=== PATIENT | female | born 2000 | race Caucasian/White ===

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

== ENCOUNTER 2020-03-02 17:45 | Emergency (ER) | payer OTHER, SELFPAY ==
[2020-03-02 18:00] VITALS: BP 119/56; PULSE 88; RESP 14; TEMP 36.3; O2SAT 98; BMI 45.1
--- NOTE | 2020-03-02 18:19 | DI.RAD.S_ITS ---
PROCEDURE: XR LUMBAR SPINE 2-3V INDICATIONS: fall with tailbone pain TECHNIQUE: 3 views of the lumbar spine were acquired. COMPARISON: None. FINDINGS: Bones: 5 [id number] vertebrae are present. There is trace levoconvex curvature of the lumbar spine. No vertebral body compression fractures. No suspicious bony lesions. The sacrum is obscured by overlying bowel gas. Soft tissues: Overlying bowel gas pattern is normal. No suspicious soft tissue calcifications. IMPRESSION: No acute lumbar compression fracture. Dictated by: Santy Pablo M.D. on 03/02/2020 at 20:01 Approved by: Santy Pablo M.D. on 03/02/2020 at 20:04
--- NOTE | 2020-03-02 18:48 | ED.FALL ---
HPI - Fall General Chief Complaint: Fall Stated Complaint: Fall Last Week, Pain In Lower Tailbone Time Seen by Provider: 03/02/20 18:09 Source: patient Mode of arrival: Ambulatory Limitations: no limitations History of Present Illness HPI Narrative: Patient is a 19-year-old female here for evaluation of tailbone pain. Patient states that approximately 1 week ago she fell landing on her bottom in a seated position. Since then she has had continued pain in her lower tailbone. Has been doing ibuprofen at home without any improvement. Her mother who is at bedside states there is also some redness in this area. Related Data Previous Rx's Medication Instructions Recorded methylphenidate HCl 5 mg tablet 5 mg PO QAM #60 tab MDD 82 mg 12/21/18 bupropion HCl 100 mg tablet,12 hr 100 mg PO BID #180 tab MDD 200 mg 03/29/19 sustained-release fluoxetine 40 mg capsule 40 mg PO DAILY #90 cap MDD 40 mg 03/29/19 propranolol 10 mg tablet 10 mg PO BID PRN #60 tab 03/29/19 buspirone 15 mg tablet See Rx Instructions PO BID #120 04/07/19 tab MDD 60 mg methylphenidate HCl 72 mg 72 mg PO DAILY #90 tab MDD 82mg 07/27/19 tablet,extended release 24 hr doxycycline hyclate 100 mg PO BID 7 Days #14 cap 03/02/20 Allergies Allergy/AdvReac Type Severity Reaction Status Date / Time amoxicillin Allergy Severe hives, Verified 03/02/20 20:49 fever Review of Systems Constitutional Constitutional: Denies fever(s) and Denies weakness Cardiovascular Cardiovascular: Denies chest pain and Denies dyspnea Respiratory Respiratory: Denies dyspnea Musculoskeletal Comments: Tailbone pain Integumentary/Breasts Comments: Redness around the tailbone Neurologic Neurologic: Denies weakness Psychiatric Psychiatric: Denies anxiety Hematologic/Lymphatic Hematologic/Lymphatic: Denies easy bleeding and Denies easy bruising Allergic/Immunologic Allergic/Immunologic: Denies urticaria Patient History Medical History Adult attention deficit disorder (Acute) Panic disorder [episodic paroxysmal anxiety] (Acute) Social History Smoking Status: Never smoker Smoking Status: Never smoker alcohol intake frequency: holidays/special occasions only Substance Use Type: marijuana Exam Initial Vital Signs Initial Vital Signs: Vital Signs Temperature 97.4 F L 03/02/20 18:00 Pulse Rate 88 03/02/20 18:00 Respiratory Rate 14 03/02/20 18:00 Blood Pressure 119/56 L 03/02/20 18:00 Pulse Oximetry 98 03/02/20 18:00 Const General: cooperative and comfortable Limitations: mental status not altered HENMT Head: normal to inspection and normocephalic Resp Effort & Inspection: normal respiratory effort Cardio Rate: regular rate Skin Other: Patient does have a 1 cm x 1 cm area of redness along the right aspect of the superior portion of the intergluteal cleft. Does seem to be extremely tender to palpation over this area Neuro General: patient alert and patient awake Extrem General: normal to inspection and capillary refill normal Psych Appearance: grossly normal and well kempt Course Orders Ordered: ED Orders 03/02/20 18:19 XR lumbar spine 2-3V Stat Discontinued Medications Doxycycline Hyclate (Vibramycin) 100 mg PO NOW ONE Stop: 03/02/20 20:24 Last Admin: 03/02/20 20:32 Dose: 100 mg Documented by: LARISA Vital Signs Vital signs: Vital Signs - 8 hr 03/02/20 18:00 03/02/20 20:37 Temperature 97.4 F L Pulse Rate 88 94 H Respiratory Rate 14 16 Blood Pressure 119/56 L 114/56 L Pulse Oximetry 98 100 MDM - Fall Lab Data Labs: Point of Care Testing Test Results Negative Imaging Data XR lumbar spine: Radiologist's Impression: [address] [address] XRay Report Signed Patient: Ana Laura García EMR#: [id number] : 2000:[id number] Age/Sex: 19 / FDate of Service: 03/02/20 Loc: ED Accession Number: [id number] Procedure: XR lumbar spine 2-3V Ordering Provider: Freddy Mckay D.O. PROCEDURE: XR LUMBAR SPINE 2-3V INDICATIONS: fall with tailbone pain TECHNIQUE: 3 views of the lumbar spine were acquired. COMPARISON: None. FINDINGS: Bones: 5 [id number] vertebrae are present. There is trace levoconvex curvature of the lumbar spine. No vertebral body compression fractures. No suspicious bony lesions. The sacrum is obscured by overlying bowel gas. Soft tissues: Overlying bowel gas pattern is normal. No suspicious soft tissue calcifications. IMPRESSION: No acute lumbar compression fracture. Dictated by: Santy Pablo M.D. on 03/02/2020 at 20:01 Approved by: Santy Pablo M.D. on 03/02/2020 at 20:04 [facility] Narrative Medical decision making narrative: The x-ray showed no signs of fracture. A bedside ultrasound over the area of redness on the right side of her superior buttocks/coccyx does not show any signs of a abscess or cyst however the physical exam is somewhat consistent with a very early on of a pilonidal cyst. There are no breaks in the skin. Unsure if this is secondary to the fall 1 week ago or if it is independent of this trauma. Had a discussion with the patient and her mother. Given the bedside ultrasound and the physical exam I feel that incision and drainage is not warranted today. I feel that it would unlikely produce any return of purulent material or cystic material. We gave the options to include watching and waiting for the next couple days to see if this not improve on its own or starting on antibiotics knowing that despite starting on antibiotics it may continue to worsen. After this discussion decision was made to start on antibiotics. She is given a 1st dose here in the ER and was sent home with a prescription for the remainder the course. I did inform the patient mother of for symptoms were to worsen or she would develop fevers or any other worsening symptoms she should return to the emergency department. She expressed understanding and agreement. Discharge Plan Departure Patient Disposition: Home Clinical Impression: Tailbone injury, Cellulitis Discharge Date/Time: 03/02/20 20:37 Instructions: DI for Cellulitis -- Adult Activity Restrictions/Additional Instructions: Recommend that you continue all of your medications as directed including the antibiotics that you were prescribed today. Contact your primary provider for follow-up. Return to the emergency department for any new or worsening symptoms Prescriptions: New doxycycline hyclate 100 mg capsule 100 mg PO BID 7 Days Qty: 14 RF: 0 No Action bupropion HCl [Wellbutrin SR] 100 mg tablet sustained-release 12 hr 100 mg PO BID MDD 200 mg Qty: 180 RF: 2 fluoxetine 40 mg capsule 40 mg PO DAILY MDD 40 mg Qty: 90 RF: 2 propranolol 10 mg tablet 10 mg PO BID PRN (Reason: anxiety) Qty: 60 RF: 5 methylphenidate HCl 5 mg tablet 5 mg PO QAM MDD 82 mg Qty: 60 RF: 0 buspirone 15 mg tablet See Rx Instructions PO BID MDD 60 mg Qty: 120 RF: 5 methylphenidate HCl 72 mg tablet extended release 24hr 72 mg PO DAILY MDD 82mg Qty: 90 RF: 0 Referrals: Ashok Turner DO [Primary Care Provider] -
[2020-03-02] MEDS: DOXYCYCLINE HYCLATE 100 MG TABLET PO (20:32)
[2020-03-02 20:37] VITALS: BP 114/56; PULSE 94; RESP 16; O2SAT 100
== END 2020-03-02 20:37 | disposition home or self-care (01) ==
PROVIDERS: Emergency Provider Emergency Medicine; PCP Student in an Organized Health Care Education/Training Program
DX: L03.317 Cellulitis of buttock (principal); S39.92XA Unspecified injury of lower back, initial encounter; L05.91 Pilonidal cyst without abscess
CPT/HCPCS: 72100; 81025; 99283

== ENCOUNTER → 2020-07-04 07:45 | Outpatient (CLI) | payer OTHER, SELFPAY ==
[2020-07-04] MEDS: COVID-19 VACC #1, MRNA(MOD) 100 MCG/0.5 ML VIAL IM (07:54)
== END ==
PROVIDERS: PCP Student in an Organized Health Care Education/Training Program; Visit Provider Internal Medicine
DX: Z23 Encounter for immunization (principal)
CPT/HCPCS: 0011A; 91301

== ENCOUNTER → 2020-08-01 07:40 | Outpatient (CLI) | payer OTHER, SELFPAY ==
[2020-08-01] MEDS: COVID-19 VACC #2, MRNA(MOD) 100 MCG/0.5 ML VIAL IM (07:46)
== END ==
PROVIDERS: PCP Student in an Organized Health Care Education/Training Program; Visit Provider Internal Medicine
DX: Z23 Encounter for immunization (principal)
CPT/HCPCS: 0012A; 91301